=== PATIENT | female | born 1955 | race Caucasian/White ===

== ENCOUNTER 2017-03-02 16:20 | Emergency (ER) | payer MEDICAID, MEDICARE ==
[~2017-03-02] VITALS: Ht 172.7 cm; Wt 81.6 kg
[2017-03-02] MEDS ORDERED: ONDANSETRON HCL 4 MG/2 ML VIAL IM ONE (16:45)
[2017-03-02] MEDS ORDERED: HYDROmorphone HCL 2 MG/ML VL IM ONE (16:45)
[2017-03-02] MEDS ORDERED: cloNIDine HCL 0.1 MG TAB PO ONE (16:45)
[2017-03-02 17:56] VITALS: BP 144/94
== END 2017-03-02 17:57 | disposition home or self-care (01) ==
LOC: ER 16:20 → EDBD 16:20 → ER 17:57
DX: G89.29 Other chronic pain (principal); M54.5 Low back pain; E78.5 Hyperlipidemia, unspecified; I10 Essential (primary) hypertension; E07.89 Other specified disorders of thyroid; Z98.51 Tubal ligation status; Z90.49 Acquired absence of other specified parts of digestive tract
CPT/HCPCS: 72110; 96372; 99284; J1170; J2405

== ENCOUNTER 2017-08-05 18:28 | Emergency (ER) | payer MEDICARE ==
[~2017-08-05] VITALS: Ht 160 cm; Wt 81.6 kg
[~2017-08-05 18:28] MED LIST: CLON0.1T PO; CLON1TAB PO; LEVO150T68 PO; LISI-646 PO; OMEP20CA74 OR; TRAM50TA2 PO
[2017-08-05 18:51] VITALS: BP 138/88
[2017-08-05 19:23] LABS: Hemoglobin 10.4 g/dL (12.2-16.2); Mean Corpuscular Volume 92.4 fL (80.0-100.0); Red Cell Distribution Width 14.7 % (11.8-14.3); White Blood Cell 4.8 10^3/uL (4.4-10.8)
[2017-08-05 19:28] LABS: Hematocrit 30.9 % (36.0-46.0); Mean Corpuscular Hgb Conc. 33.6 g/dL (32.0-36.0); Mean Platelet Volume 8.5 fL (6.9-10.8); Platelet Count (auto) 309 10^3/uL (140-450)
[2017-08-05 19:31] LABS: Metamyelocytes % 0; Myelocytes % 0; Promyelocytes % 0; Reactive Lymphocytes 0
[2017-08-05 19:43] LABS: Albumin 3.9 g/dL (3.4-5.0); BUN/Creatinine Ratio 36.6; Bilirubin, Total 0.5 mg/dL (0.2-1.0); Calcium 11.5 mg/dL (8.5-10.1); Potassium 3.3 mmol/L (3.5-5.1); Total Protein 7.8 g/dL (6.4-8.2)
[2017-08-05 19:54] LABS: Anisocytosis Slight; Platelet Estimate Adequate
== END 2017-08-06 00:15 | disposition left against medical advice (07) ==
LOC: ER 18:28
DX: R10.9 Unspecified abdominal pain (principal); R11.2 Nausea with vomiting, unspecified; Z53.21 Procedure and treatment not carried out due to patient leaving prior to being seen by health care provider
CPT/HCPCS: 36415; 80053; 85007; 85027; 93005

== ENCOUNTER 2017-08-06 10:08 | Observation (INO) | payer MEDICARE ==
[~2017-08-06] VITALS: Ht 157.5 cm; Wt 81.6 kg
[2017-08-06] MEDS ORDERED: SODIUM CHLORIDE 0.9% 1,000 ML IVB ONE (13:13)
[2017-08-06] MEDS ORDERED: PANTOPRAZOLE 40 MG/10 ML VIAL IV STA (13:13)
[2017-08-06] MEDS ORDERED: ONDANSETRON HCL 4 MG/2 ML VIAL IV ONE (13:15)
[2017-08-06] MEDS ORDERED: HYDROmorphone HCL 2 MG/ML VL IV ONE (13:15)
[2017-08-06 14:34] LABS: Basophils # (auto) 0 uL; Basophils % (auto) 0.5 % (0.0-2.0); Eosinophils # (auto) 0.1 uL; Hematocrit 32.5 % (36.0-46.0); Lymphocytes # (auto) 0.6 uL; Lymphocytes % (auto) 16.3 % (10.0-50.0); Mean Corpuscular Hemoglobin 31.6 pg (28.0-32.0); Mean Corpuscular Hgb Conc. 30.9 g/dL (32.0-36.0); Mean Corpuscular Volume 102.4 fL (80.0-100.0); Monocytes # (auto) 0.6 uL; Monocytes % (auto) 16.2 % (0.0-12.0); Neutrophils # (auto) 2.5 uL; Nucleated Red Blood Cells % 0.1 %; Platelet Count (auto) 247 10^3/uL (140-450); Red Blood Cells 3.17 10^6/uL (4.0-5.20); Red Cell Distribution Width 16.1 % (11.8-14.3); White Blood Cell 3.9 10^3/uL (4.4-10.8)
[2017-08-06 14:58] LABS: Albumin 3.2 g/dL (3.4-5.0); BUN/Creatinine Ratio 39.4; Bilirubin, Total 0.5 mg/dL (0.2-1.0); Calcium 10.9 mg/dL (8.5-10.1); Potassium 3.9 mmol/L (3.5-5.1); Total Protein 7.2 g/dL (6.4-8.2)
[2017-08-06 16:00] VITALS: BP 149/88
== END 2017-08-06 15:43 | disposition home or self-care (01) | DRG 392 ==
LOC: ER 10:08 → OVERFLOW 13:15 → ER 15:43
PROVIDERS: ADMIT Family Medicine; ATTEND Family Medicine
DX: K29.00 Acute gastritis without bleeding (principal); I10 Essential (primary) hypertension; R74.8 Abnormal levels of other serum enzymes; K57.30 Diverticulosis of large intestine without perforation or abscess without bleeding; Z87.11 Personal history of peptic ulcer disease; Z90.49 Acquired absence of other specified parts of digestive tract
CPT/HCPCS: 36415; 74176; 80053; 82150; 83690; 85025; 96361; 96374; 96375; 99285; C9113; G0378; J1170; J2405; J7030

== ENCOUNTER 2017-09-07 11:30 | Emergency (ER) | payer MEDICARE ==
[~2017-09-07] VITALS: Ht 160 cm; Wt 85.7 kg
[2017-09-07 11:50] VITALS: BP 194/92
== END 2017-09-07 12:12 | disposition home or self-care (01) ==
LOC: ER 11:30
DX: F41.9 Anxiety disorder, unspecified (principal); I11.0 Hypertensive heart disease with heart failure; I50.9 Heart failure, unspecified; Z90.49 Acquired absence of other specified parts of digestive tract; Z76.0 Encounter for issue of repeat prescription; Z88.8 Allergy status to other drugs, medicaments and biological substances; Z88.6 Allergy status to analgesic agent; Z79.899 Other long term (current) drug therapy